=== PATIENT | female | born 1960 | race Caucasian/White ===

== ENCOUNTER 2020-11-03 12:48 | Inpatient (IN) ==
[2020-11-03] MEDS ORDERED: methylPREDNISolone 125 MG/2 ML VIAL IVP ONE (13:35)
[2020-11-03] MEDS ORDERED: Ipratropium/Albuterol Neb 3 ML IH ONE (13:35)
[2020-11-03 14:08] LABS: Mean Corpuscular Volume 105.5 fL (83.0-100.0)
[2020-11-03 14:10] LABS: Basophils % 0.4 %; Eosinophils % 0.1 %; Hematocrit 40.1 % (35.3-44.9); Hemoglobin 13.4 g/dL (11.5-15.4); Immature Granulocytes % 0.4 % (0-4); Immature Platelets 7.8 % (1.1-6.1); Lymphocytes # 0.7 K/mcL (0.6-4.6); Lymphocytes % 10.5 %; Mean Corpuscular HGB Conc 33.4 g/dL (31.6-35.5); Mean Corpuscular Hemoglobin 35.3 pg (28.0-33.3); Mean Platelet Volume 12.5 fL (9.4-12.4); Monocytes # 0.2 K/mcL (0.0-1.3); Monocytes % 2.8 %; Neutrophils # 5.9 K/mcL (1.6-8.9); Red Cell Distribution Width 13.4 % (11.5-14.5); Segmented Neutrophils % 85.8 %; White Blood Count 6.9 K/mcL (4.3-11.1)
[2020-11-03 14:11] LABS: Platelet Count 38 K/mcL (140-400)
[2020-11-03 14:42] LABS: BUN/Creatinine Ratio 11 (6-26); Blood Urea Nitrogen 9 mg/dL (6-20); Calcium 8.5 mg/dL (8.6-10.3); Carbon Dioxide 22 mEq/L (23-29); Chloride 97 mEq/L (98-107); Glucose 111 mg/dL (70-105); Osmolality,Calculated 281 (280-300); Potassium 3.8 mEq/L (3.5-5.1); Sodium 136 mEq/L (136-145); Troponin I < 0.03 ng/mL (< 0.04); eGFR For African Americans > 60 (> 60); eGFR For Non-African Americans > 60 (> 60)
[2020-11-03 14:50] LABS: Bilirubin,Urine Negative (Negative); Blood,Urine Negative (Negative); Clarity,Urine Clear (Clear); Color,Urine Colorless (Yellow); Glucose,Urine (UA) Normal (Normal); Ketones,Urine Negative (Negative); Leukocyte Esterase,Urine Negative (Negative); Nitrite,Urine Negative (Negative); Protein,Urine Negative (Neg-Trace); Specific Gravity,Urine < 1.005 (1.010-1.025); Urobilinogen,Urine Normal (Normal)
[2020-11-03] MEDS ORDERED: Isovue-370 500 ML BOTTLE IVP ONE (15:54)
[2020-11-03] MEDS ORDERED: *HR* LORazepam 2 MG/ML VIAL IVP ONE (19:00)
[2020-11-03] MEDS ORDERED: Naloxone 0.4 MG/ML INJ IVP PRN (19:16)
[2020-11-03] MEDS ORDERED: Ondansetron 4 MG/2 ML VIAL IVP PRN (19:16)
[2020-11-03] MEDS ORDERED: *HR* Heparin 5,000 UNIT/ML VIAL IVP PRN ×2 (19:21)
[2020-11-03] MEDS ORDERED: *HR* Heparin 5,000 UNIT/ML VIAL IVP ONE (19:21)
[2020-11-03] MEDS ORDERED: *HR* LORazepam 2 MG/ML VIAL IVP PRN (20:11)
[2020-11-03] MEDS: Thiamine (B-1) 100 MG TABLET PO SCH (21:31)
[2020-11-03] MEDS: Vitamin B Complex/Vit C/Vit E 1 EACH TABLET PO SCH (21:31)
[2020-11-03] MEDS: Folic Acid 1 MG TABLET PO SCH (21:31)
[2020-11-03] MEDS: Loratadine 10 MG TABLET PO SCH (21:31)
[2020-11-03 21:34] LABS: Heparin anti-factor XA UFH 0.05 IU/mL (0.30-0.70); INR 0.9; Prothrombin Time 10.1 Seconds (9.4-12.1)
[2020-11-03] MEDS: Heparin 25,000UNIT/250ML 1/2NS 25,000 UNIT/250 ML IV.SOLN IVC SCH (21:50)
[2020-11-03] MEDS: *HR* LORazepam 2 MG/ML VIAL IVP PRN (22:46)
[2020-11-03] MEDS: Ipratropium 1 PUFF INHALER IH SCH (23:38)
[2020-11-04] MEDS: *HR* LORazepam 2 MG/ML VIAL IVP PRN ×4 (02:48→20:52)
[2020-11-04] MEDS: Acetaminophen 325 MG TABLET PO PRN (03:06)
[2020-11-04] MEDS: Ipratropium 1 PUFF INHALER IH SCH ×5 (03:27→19:33)
[2020-11-04 03:54] LABS: Basophils % 0.3 %; Hematocrit 38.4 % (35.3-44.9); Hemoglobin 12.7 g/dL (11.5-15.4); Lymphocytes # 0.5 K/mcL (0.6-4.6); Mean Corpuscular HGB Conc 33.1 g/dL (31.6-35.5); Mean Corpuscular Hemoglobin 35.4 pg (28.0-33.3); Monocytes # 0.2 K/mcL (0.0-1.3); Monocytes % 7.1 %; Red Blood Count 3.59 M/mcL (3.82-4.97); Red Cell Distribution Width 13.3 % (11.5-14.5); Segmented Neutrophils % 73.6 %
[2020-11-04 03:55] LABS: Neutrophils # 2.1 K/mcL (1.6-8.9); Platelet Count 38 K/mcL (140-400); White Blood Count 2.9 K/mcL (4.3-11.1)
[2020-11-04 04:07] LABS: D-Dimer 2379 ng/mLFEU (0-500)
[2020-11-04 04:16] LABS: Fibrinogen 377 mg/dL (169-393)
[2020-11-04 04:17] LABS: Albumin 4.5 g/dL (3.5-5.7); Albumin/Globulin Ratio 1.9 (1.1-2.2); BUN/Creatinine Ratio 13 (6-26); Bilirubin,Direct 0.1 mg/dL (0.0-0.2); Bilirubin,Indirect 0.3 mg/dL (0.0-1.0); Bilirubin,Total 0.4 mg/dL (0.3-1.0); Blood Urea Nitrogen 11 mg/dL (6-20); Calcium 8.3 mg/dL (8.6-10.3); Carbon Dioxide 24 mEq/L (23-29); Chloride 96 mEq/L (98-107); Globulin 2.4 g/dL (2.4-3.5); Glucose 204 mg/dL (70-105); Magnesium 1.9 mg/dL (1.6-2.6); Osmolality,Calculated 283 (280-300); Potassium 3.7 mEq/L (3.5-5.1); Sodium 134 mEq/L (136-145); Total Protein 6.9 g/dL (6.4-8.9); eGFR For African Americans > 60 (> 60); eGFR For Non-African Americans > 60 (> 60)
[2020-11-04 05:20] LABS: Hepatitis B Surface Antigen Nonreactive (Nonreactive)
[2020-11-04 05:33] LABS: Hepatitis C Virus Antibody Nonreactive (Nonreactive)
[2020-11-04] MEDS: Furosemide 40 MG/4 ML VIAL IVP SCH ×2 (07:27→16:13)
[2020-11-04] MEDS: Thiamine (B-1) 100 MG TABLET PO SCH (07:27)
[2020-11-04] MEDS: Pantoprazole 40 MG VIAL IVP SCH (07:27)
[2020-11-04] MEDS: Vitamin B Complex/Vit C/Vit E 1 EACH TABLET PO SCH (07:28)
[2020-11-04] MEDS: Folic Acid 1 MG TABLET PO SCH (07:28)
[2020-11-04] MEDS ORDERED: Benzonatate 100 MG CAPSULE PO PRN (16:01)
[2020-11-04] MEDS: Loratadine 10 MG TABLET PO SCH (20:18)
[2020-11-04] MEDS ORDERED: *HR* LORazepam 2 MG/ML VIAL IM STA (23:22)
[2020-11-05] MEDS: Ipratropium 1 PUFF INHALER IH SCH ×7 (00:07→23:27)
[2020-11-05] MEDS ORDERED: HydrOXYzine 100 MG/2 ML VIAL IM ONE (01:49)
[2020-11-05] MEDS: Heparin 25,000UNIT/250ML 1/2NS 25,000 UNIT/250 ML IV.SOLN IVC SCH (04:51)
[2020-11-05] MEDS: Folic Acid 1 MG TABLET PO SCH (08:05)
[2020-11-05] MEDS: Pantoprazole 40 MG VIAL IVP SCH (08:05)
[2020-11-05] MEDS: Thiamine (B-1) 100 MG TABLET PO SCH (08:05)
[2020-11-05] MEDS: Vitamin B Complex/Vit C/Vit E 1 EACH TABLET PO SCH (08:05)
[2020-11-05] MEDS: Furosemide 40 MG/4 ML VIAL IVP SCH ×2 (08:07→17:26)
[2020-11-05] MEDS: *HR* LORazepam 2 MG/ML VIAL IVP PRN ×6 (08:26→22:12)
[2020-11-05] MEDS: Lactulose Oral Soln 20 GM/30 ML UDC PO SCH ×2 (09:25→19:46)
[2020-11-05 09:33] LABS: Eosinophils % 0.1 %; Immature Granulocytes % 0.5 % (0-4)
[2020-11-05 09:35] LABS: Basophils % 0.1 %; Hematocrit 40.8 % (35.3-44.9); Hemoglobin 13.7 g/dL (11.5-15.4); Immature Platelets 10.6 % (1.1-6.1); Lymphocytes # 1.1 K/mcL (0.6-4.6); Mean Corpuscular HGB Conc 33.6 g/dL (31.6-35.5); Mean Corpuscular Hemoglobin 34.8 pg (28.0-33.3); Mean Corpuscular Volume 103.6 fL (83.0-100.0); Mean Platelet Volume 12.7 fL (9.4-12.4); Monocytes # 0.3 K/mcL (0.0-1.3); Monocytes % 4.2 %; Neutrophils # 6.7 K/mcL (1.6-8.9); Red Blood Count 3.94 M/mcL (3.82-4.97); Red Cell Distribution Width 12.8 % (11.5-14.5); Segmented Neutrophils % 82.1 %; White Blood Count 8.2 K/mcL (4.3-11.1)
[2020-11-05 09:41] LABS: Platelet Count 57 K/mcL (140-400)
[2020-11-05 09:55] LABS: Alanine Aminotransferase 142 Units/L (7-52); Albumin 4.8 g/dL (3.5-5.7); Albumin/Globulin Ratio 1.8 (1.1-2.2); Alkaline Phosphatase 91 Units/L (34-104); Aspartate Amino Transferase 239 Units/L (13-39); BUN/Creatinine Ratio 12 (6-26); Bilirubin,Total 0.6 mg/dL (0.3-1.0); Blood Urea Nitrogen 13 mg/dL (6-20); Calcium 8.6 mg/dL (8.6-10.3); Carbon Dioxide 29 mEq/L (23-29); Chloride 88 mEq/L (98-107); Globulin 2.6 g/dL (2.4-3.5); Glucose 111 mg/dL (70-105); Osmolality,Calculated 275 (280-300); Sodium 132 mEq/L (136-145); Total Protein 7.4 g/dL (6.4-8.9); eGFR For African Americans > 60 (> 60); eGFR For Non-African Americans 50 (> 60)
[2020-11-05] MEDS: *HR* Enoxaparin 40 MG/0.4 ML SYRINGE SQ SCH ×2 (11:48→22:12)
[2020-11-05] MEDS ORDERED: Thiamine (B-1) 100 MG, Folic Acid 1 MG, MVI, adult with vitamin K 10 ML in 0.9 % Sodi... IVPB ONE (18:00)
[2020-11-05] MEDS: Loratadine 10 MG TABLET PO SCH (19:46)
[2020-11-05] MEDS: Acetaminophen 325 MG TABLET PO PRN (20:05)
[2020-11-06] MEDS: Ipratropium 1 PUFF INHALER IH SCH ×6 (03:56→23:12)
[2020-11-06 05:46] LABS: Hematocrit 37.1 % (35.3-44.9); Hemoglobin 12.6 g/dL (11.5-15.4); Immature Platelets 11.9 % (1.1-6.1); Mean Corpuscular Hemoglobin 35.3 pg (28.0-33.3); Mean Corpuscular Volume 103.9 fL (83.0-100.0); Mean Platelet Volume 12.7 fL (9.4-12.4); Red Blood Count 3.57 M/mcL (3.82-4.97); Red Cell Distribution Width 12.7 % (11.5-14.5); White Blood Count 5.9 K/mcL (4.3-11.1)
[2020-11-06 05:59] LABS: Alanine Aminotransferase 189 Units/L (7-52); Albumin 4.3 g/dL (3.5-5.7); Albumin/Globulin Ratio 1.7 (1.1-2.2); Alkaline Phosphatase 85 Units/L (34-104); Aspartate Amino Transferase 306 Units/L (13-39); BUN/Creatinine Ratio 16 (6-26); Bilirubin,Total 0.5 mg/dL (0.3-1.0); Blood Urea Nitrogen 17 mg/dL (6-20); Calcium 7.7 mg/dL (8.6-10.3); Carbon Dioxide 26 mEq/L (23-29); Chloride 90 mEq/L (98-107); Globulin 2.5 g/dL (2.4-3.5); Glucose 85 mg/dL (70-105); Osmolality,Calculated 273 (280-300); Potassium 2.9 mEq/L (3.5-5.1); Sodium 131 mEq/L (136-145); Total Protein 6.8 g/dL (6.4-8.9); eGFR For African Americans > 60 (> 60); eGFR For Non-African Americans 52 (> 60)
[2020-11-06] MEDS: Pantoprazole 40 MG VIAL IVP SCH (08:02)
[2020-11-06] MEDS: Thiamine (B-1) 100 MG TABLET PO SCH (08:03)
[2020-11-06] MEDS: Folic Acid 1 MG TABLET PO SCH (08:03)
[2020-11-06] MEDS: Vitamin B Complex/Vit C/Vit E 1 EACH TABLET PO SCH (08:03)
[2020-11-06] MEDS: Furosemide 40 MG/4 ML VIAL IVP SCH ×2 (08:03→16:49)
[2020-11-06] MEDS: Lactulose Oral Soln 20 GM/30 ML UDC PO SCH ×2 (08:03→20:12)
[2020-11-06 10:32] LABS: Magnesium 1.8 mg/dL (1.6-2.6)
[2020-11-06] MEDS: *HR* Enoxaparin 40 MG/0.4 ML SYRINGE SQ SCH ×2 (11:13→20:12)
[2020-11-06] MEDS: Loratadine 10 MG TABLET PO SCH (20:12)
[2020-11-07] MEDS: Ipratropium 1 PUFF INHALER IH SCH ×6 (03:54→23:51)
[2020-11-07] MEDS: Pantoprazole 40 MG VIAL IVP SCH (08:50)
[2020-11-07] MEDS: Folic Acid 1 MG TABLET PO SCH (08:50)
[2020-11-07] MEDS: Vitamin B Complex/Vit C/Vit E 1 EACH TABLET PO SCH (08:50)
[2020-11-07] MEDS: Thiamine (B-1) 100 MG TABLET PO SCH (08:50)
[2020-11-07] MEDS: Lactulose Oral Soln 20 GM/30 ML UDC PO SCH (08:50)
[2020-11-07 09:00] LABS: Mean Corpuscular HGB Conc 33.8 g/dL (31.6-35.5); Mean Corpuscular Hemoglobin 35.4 pg (28.0-33.3); Red Cell Distribution Width 12.9 % (11.5-14.5)
[2020-11-07] MEDS ORDERED: Furosemide 40 MG/4 ML VIAL IVP SCH (09:00)
[2020-11-07 09:02] LABS: Hematocrit 40.5 % (35.3-44.9); Hemoglobin 13.7 g/dL (11.5-15.4); Mean Corpuscular Volume 104.7 fL (83.0-100.0); Mean Platelet Volume 11.9 fL (9.4-12.4); Red Blood Count 3.87 M/mcL (3.82-4.97); White Blood Count 5.6 K/mcL (4.3-11.1)
[2020-11-07 09:08] LABS: VBG Ionized Calcium 0.82 mmol/L (1.15-1.35)
[2020-11-07 09:17] LABS: Alanine Aminotransferase 168 Units/L (7-52); Albumin 4.4 g/dL (3.5-5.7); Albumin/Globulin Ratio 1.6 (1.1-2.2); Alkaline Phosphatase 88 Units/L (34-104); Aspartate Amino Transferase 172 Units/L (13-39); BUN/Creatinine Ratio 17 (6-26); Bilirubin,Total 0.4 mg/dL (0.3-1.0); Blood Urea Nitrogen 18 mg/dL (6-20); Calcium 7.9 mg/dL (8.6-10.3); Carbon Dioxide 24 mEq/L (23-29); Chloride 92 mEq/L (98-107); Globulin 2.7 g/dL (2.4-3.5); Glucose 149 mg/dL (70-105); Magnesium 1.9 mg/dL (1.6-2.6); Osmolality,Calculated 277 (280-300); Phosphorous 4.8 mg/dL (2.7-4.5); Sodium 131 mEq/L (136-145); Total Protein 7.1 g/dL (6.4-8.9); eGFR For African Americans > 60 (> 60); eGFR For Non-African Americans 52 (> 60)
[2020-11-07] MEDS: *HR* Enoxaparin 40 MG/0.4 ML SYRINGE SQ SCH ×2 (14:22→22:52)
[2020-11-07] MEDS: Loratadine 10 MG TABLET PO SCH (21:14)
[2020-11-08] MEDS: Ipratropium 1 PUFF INHALER IH SCH ×3 (03:49→11:25)
[2020-11-08] MEDS: Pantoprazole 40 MG VIAL IVP SCH (07:32)
[2020-11-08] MEDS: Thiamine (B-1) 100 MG TABLET PO SCH (07:33)
[2020-11-08] MEDS: Folic Acid 1 MG TABLET PO SCH (07:33)
[2020-11-08] MEDS: Vitamin B Complex/Vit C/Vit E 1 EACH TABLET PO SCH (07:33)
[2020-11-08 07:35] LABS: Alanine Aminotransferase 122 Units/L (7-52); Albumin 4.2 g/dL (3.5-5.7); Albumin/Globulin Ratio 1.7 (1.1-2.2); Alkaline Phosphatase 77 Units/L (34-104); Aspartate Amino Transferase 90 Units/L (13-39); BUN/Creatinine Ratio 14 (6-26); Bilirubin,Total 0.4 mg/dL (0.3-1.0); Blood Urea Nitrogen 13 mg/dL (6-20); Carbon Dioxide 25 mEq/L (23-29); Chloride 96 mEq/L (98-107); Globulin 2.5 g/dL (2.4-3.5); Glucose 95 mg/dL (70-105); Osmolality,Calculated 276 (280-300); Potassium 3.2 mEq/L (3.5-5.1); Sodium 133 mEq/L (136-145); Total Protein 6.7 g/dL (6.4-8.9); eGFR For African Americans > 60 (> 60); eGFR For Non-African Americans > 60 (> 60)
[2020-11-08 08:07] VITALS: BP 103/71
== END 2020-11-08 14:15 | disposition home health service (06) ==
LOC: EMEROOARM 12:48 → 3BNU 12:48 → SUATTDRO 18:57 → 3BNU 19:40 → SUATTDRO 11-05 13:18
PROVIDERS: ADMIT Pharmacist; ATTEND Student in an Organized Health Care Education/Training Program